=== PATIENT | female | born 1990 | race Two or more races ===

== ENCOUNTER 2019-10-08 16:03 | Emergency (ER) | payer SELFPAY ==
[~2019-10-08] VITALS: Ht 154.9 cm; Wt 70.3 kg
[2019-10-08 16:30] VITALS: BP 128/63
== END 2019-10-08 21:35 | disposition home or self-care (01) ==
LOC: ER 16:07
DX: M79.601 Pain in right arm (principal); M25.511 Pain in right shoulder
CPT/HCPCS: 73030; 73080; 93971

== ENCOUNTER 2020-07-23 01:41 | Emergency (ER) | payer BC, OTHER ==
[~2020-07-23] VITALS: Ht 154.9 cm; Wt 69.4 kg
[2020-07-23 02:16] LABS: Basophils # (auto) 0.1 10 ^3/uL (0-0.2); Basophils % (auto) 0.7 % (0.0-2.0); Eosinophils # (auto) 0.2 10 ^3/uL (0-0.8); Eosinophils % (auto) 1.9 % (0.0-7.0); Hematocrit 36.9 % (36.0-46.0); Hemoglobin 12.7 g/dL (12.2-16.2); Lymphocytes # (auto) 3.4 10 ^3/uL (0.4-5.4); Lymphocytes % (auto) 26.6 % (10.0-50.0); Mean Corpuscular Hemoglobin 30.3 pg (28.0-32.0); Mean Corpuscular Hgb Conc. 34.4 g/dL (32.0-36.0); Monocytes # (auto) 0.7 10 ^3/uL (0-1.3); Monocytes % (auto) 5.4 % (0.0-12.0); Neutrophils # (auto) 8.4 10 ^3/uL (1.6-8.6); Neutrophils % (auto) 65.4 % (37.0-80.0); Nucleated Red Blood Cells % 0.1 %; Platelet Count (auto) 266 10^3/uL (140-450); Red Blood Cells 4.19 10^6/uL (4.0-5.20); Red Cell Distribution Width 12.4 % (11.8-14.3); White Blood Cell 12.9 10^3/uL (4.4-10.8)
[2020-07-23] MEDS ORDERED: SODIUM CHLORIDE 0.9% 2,000 ML IV ONE (04:00)
[2020-07-23 04:03] LABS: Urine Bacteria FEW /hpf (None Seen); Urine Blood 3+ /uL (Negative); Urine Specific Gravity 1.008 (1.001-1.035); Urine WBC 4 /hpf (0 - 5)
[2020-07-23 08:21] VITALS: BP 109/62
== END 2020-07-23 09:08 | disposition home or self-care (01) ==
LOC: ER 01:46
DX: O03.9 Complete or unspecified spontaneous abortion without complication (principal); Z3A.12 12 weeks gestation of pregnancy
CPT/HCPCS: 36415; 76801; 81001; 84702; 85025; 86850; 86900; 86901; 96360; 99285; J7030

== ENCOUNTER 2021-01-05 10:53 | Emergency (ER) | payer BC ==
[~2021-01-05] VITALS: Ht 157.5 cm; Wt 77.1 kg
[2021-01-05 10:57] VITALS: BP 155/85
== END 2021-01-05 11:52 | disposition home or self-care (01) ==
LOC: ER 10:53
DX: O26.893 Other specified pregnancy related conditions, third trimester (principal); G51.0 Bell's palsy; Z90.49 Acquired absence of other specified parts of digestive tract; Z3A.35 35 weeks gestation of pregnancy

== ENCOUNTER 2021-01-12 05:36 | Inpatient (IN) | payer BC ==
[~2021-01-12] VITALS: Ht 154.9 cm; Wt 77.1 kg
[2021-01-12] VITALS (14 sets, daily range): BP systolic 108–156; BP diastolic 58–101
[2021-01-12] MEDS ORDERED: TERBUTALINE SULFATE 1 MG/ML 1ML VIAL SC ONE ×2 (06:25→14:00)
[2021-01-12] MEDS ORDERED: LACTATED RINGER'S 1,000 ML IV ONE (06:30)
[2021-01-12] MEDS: LACTATED RINGER'S 1,000 ML IV SCH ×2 (06:41→20:10)
[2021-01-12] MEDS ORDERED: ceFAZolin 1GM/50ML 50 ML IV ONE (06:45)
[2021-01-12] MEDS ORDERED: LACTATED RINGER'S 1,000 ML IV SCH ×2 (06:45→08:30)
[2021-01-12] MEDS ORDERED: TETRACAINE 1% INJ 2 ML VIAL IJ ONE (06:51)
[2021-01-12] MEDS ORDERED: MORPHINE SULF PF 2 MG/2 ML SYRG ONE (06:53)
[2021-01-12] MEDS ORDERED: fentaNYL CITRATE 100 MCG/2 ML VL ONE (06:53)
[2021-01-12] MEDS ORDERED: MIDAZOLAM HCL 2MG/2ML 2ml VIAL (1mg/ml) ONE (06:53)
[2021-01-12] MEDS ORDERED: ONDANSETRON HCL 4 MG/2 ML VIAL ONE (06:54)
[2021-01-12] MEDS ORDERED: oxyTOCIN 10 UNIT/ML 10ML VIAL ONE (06:54)
[2021-01-12] MEDS ORDERED: BUPIVACAINE 0.5% P/F INJ 10 ML VIAL ONE (06:54)
[2021-01-12] MEDS ORDERED: ePHEDrine SULFATE 50 MG/ML AMP ONE (06:54)
[2021-01-12] MEDS ORDERED: SODIUM CHLORIDE LOCK 10 ML ONE (06:54)
[2021-01-12] MEDS ORDERED: EPINEPHrine HCL 1 MG/1 ML AMP ONE (06:54)
[2021-01-12] MEDS ORDERED: ROCURONIUM 10MG/ML 10ML VIAL IV ONE (07:23)
[2021-01-12] MEDS ORDERED: PROPOFOL 10 MG/ML 20 ML IV ONE (07:23)
[2021-01-12 07:43] LABS: Basophils # (auto) 0.1 10 ^3/uL (0-0.2); Basophils % (auto) 0.5 % (0.0-2.0); Eosinophils # (auto) 0.1 10 ^3/uL (0-0.8); Eosinophils % (auto) 0.4 % (0.0-7.0); Hematocrit 36.5 % (36.0-46.0); Hemoglobin 12.2 g/dL (12.2-16.2); Lymphocytes # (auto) 3.2 10 ^3/uL (0.4-5.4); Lymphocytes % (auto) 25.6 % (10.0-50.0); Mean Corpuscular Hemoglobin 29.7 pg (28.0-32.0); Mean Corpuscular Hgb Conc. 33.4 g/dL (32.0-36.0); Monocytes # (auto) 0.6 10 ^3/uL (0-1.3); Monocytes % (auto) 4.7 % (0.0-12.0); Neutrophils # (auto) 8.6 10 ^3/uL (1.6-8.6); Neutrophils % (auto) 68.8 % (37.0-80.0); Nucleated Red Blood Cells % 0.1 %; Red Cell Distribution Width 13.3 % (11.8-14.3); White Blood Cell 12.5 10^3/uL (4.4-10.8)
[2021-01-12 07:51] LABS: Urine Bacteria FEW /hpf (None Seen); Urine Blood TRACE /uL (Negative); Urine Mucus FEW (None Seen); Urine Specific Gravity 1.013 (1.001-1.035); Urine WBC 1 /hpf (0 - 5)
[2021-01-12 07:59] LABS: INR 0.95 (0.9-1.15); Partial Thromboplastin Time 22.9 sec (23.0-31.2)
[2021-01-12 08:00] LABS: Albumin 2.6 g/dL (3.4-5.0); Calcium 8.9 mg/dL (8.5-10.1); Potassium 3.3 mmol/L (3.5-5.1)
[2021-01-12] MEDS ORDERED: NEOSTIGMINE 1 MG/ML INJ (10mg/10ML VIAL) ONE (08:02)
[2021-01-12] MEDS ORDERED: GLYCOPYRROLATE 0.2 MG/ML 1ML VIAL ONE (08:02)
[2021-01-12] MEDS ORDERED: KETOROLAC TROMETH 30 MG/ML 1ML VIAL ONE (08:05)
[2021-01-12 08:06] LABS: BUN/Creatinine Ratio 17.4; Bilirubin, Total 0.2 mg/dL (0.2-1.0); Total Protein 6.5 g/dL (6.4-8.2)
[2021-01-12 08:11] LABS: Alcohol, Urine < 3.0 mg/dL (0-10); Amphetamine Screen, Urine NEGATIVE (NEGATIVE); Barbiturate Scree,Urine NEGATIVE (NEGATIVE); Benzodiazephine Screen, Urine NEGATIVE (NEGATIVE); Cannabinoid Screen, Urine NEGATIVE (NEGATIVE); Cocaine Screen, Urine NEGATIVE (NEGATIVE); Opiate Scree,Urine NEGATIVE (NEGATIVE); Phencyclidine Screen, Urine NEGATIVE (NEGATIVE)
[2021-01-12] MEDS ORDERED: ONDANSETRON HCL 4 MG/2 ML VIAL IV PRN (08:30)
[2021-01-12] MEDS ORDERED: ceFAZolin 1GM/50ML 50 ML IV SCH (08:30)
[2021-01-12] MEDS ORDERED: GUM (CHEWING) 1 GUM CHEW CHEW ONE (08:30)
[2021-01-12] MEDS ORDERED: HYDROmorphone HCL 2 MG/ML VL IV PRN ×3 (08:30→08:45)
[2021-01-12] MEDS ORDERED: METOCLOPRAMIDE HCL 5MG/ml INJ 2ml VIAL IV PRN (08:45)
[2021-01-12] MEDS ORDERED: KETOROLAC TROMETH 30 MG/ML 1ML VIAL IV ONE (08:45)
[2021-01-12] MEDS ORDERED: MORPHINE SULFATE 4 MG/ML SYR/VIAL IV PRN (08:45)
[2021-01-12] MEDS ORDERED: ACETAMINOPHEN IV 1000 MG/100ML (10MG/ML) IV ONE (10:30)
[2021-01-12] MEDS ORDERED: MORPHINE SULFATE INJECTION 2 MG/ML SYRG IV PRN (10:45)
[2021-01-12] MEDS: KETOROLAC TROMETH 30 MG/ML 1ML VIAL IV PRN ×2 (14:20→20:34)
[2021-01-12] MEDS: ceFAZolin 1GM/50ML 50 ML IV SCH ×2 (16:10→23:49)
[2021-01-13] MEDS: KETOROLAC TROMETH 30 MG/ML 1ML VIAL IV PRN (03:03)
[2021-01-13 03:21] VITALS: BP 113/61
[2021-01-13 06:40] VITALS: BP 122/64
[2021-01-13] MEDS ORDERED: HYDROcodone-ACET 5/325MG TAB PO PRN (07:00)
[2021-01-13] MEDS ORDERED: SIMETHICONE 80 MG CHEWABLE TABLET PO PRN (07:00)
[2021-01-13] MEDS ORDERED: PREN-96 PO (07:01)
[2021-01-13] MEDS ORDERED: FERR27TA2 PO (07:02)
[2021-01-13 07:10] LABS: Basophils # (auto) 0 10 ^3/uL (0-0.2); Basophils % (auto) 0.3 % (0.0-2.0); Eosinophils # (auto) 0.1 10 ^3/uL (0-0.8); Eosinophils % (auto) 0.4 % (0.0-7.0); Hematocrit 28.4 % (36.0-46.0); Hemoglobin 9.7 g/dL (12.2-16.2); Lymphocytes # (auto) 2.7 10 ^3/uL (0.4-5.4); Lymphocytes % (auto) 17.6 % (10.0-50.0); Mean Corpuscular Hemoglobin 30.2 pg (28.0-32.0); Mean Corpuscular Hgb Conc. 34.1 g/dL (32.0-36.0); Mean Corpuscular Volume 88.6 fL (80.0-100.0); Monocytes # (auto) 0.7 10 ^3/uL (0-1.3); Monocytes % (auto) 4.8 % (0.0-12.0); Neutrophils # (auto) 11.8 10 ^3/uL (1.6-8.6); Neutrophils % (auto) 76.9 % (37.0-80.0); Red Blood Cells 3.21 10^6/uL (4.0-5.20); Red Cell Distribution Width 13.6 % (11.8-14.3); White Blood Cell 15.3 10^3/uL (4.4-10.8)
[2021-01-13] MEDS: ceFAZolin 1GM/50ML 50 ML IV SCH (07:28)
[2021-01-13] MEDS: IBUPROFEN 800 MG TAB PO PRN ×2 (07:52→17:18)
[2021-01-13 08:06] LABS: RPR Non Reactive (Non Reactive)
[2021-01-13 10:30] VITALS: BP 108/62
[2021-01-13] MEDS: DOCUSATE SOD 100 MG CAP PO SCH ×2 (12:01→22:00)
[2021-01-13] MEDS: HYDROcodone-ACET 5/325MG TAB PO PRN ×2 (14:53→23:43)
[2021-01-13 15:00] VITALS: BP 131/74
[2021-01-13 19:00] VITALS: BP 136/76
[2021-01-13] MEDS: FERROUS SULFATE 325mg EC TAB PO SCH (21:25)
[2021-01-13 23:00] VITALS: BP 111/63
[2021-01-14] MEDS: IBUPROFEN 800 MG TAB PO PRN ×3 (02:45→20:42)
[2021-01-14 03:01] VITALS: BP 126/71
[2021-01-14 07:07] VITALS: BP 135/84
[2021-01-14] MEDS: FERROUS SULFATE 325mg EC TAB PO SCH ×2 (09:05→18:30)
[2021-01-14] MEDS: DOCUSATE SOD 100 MG CAP PO SCH ×2 (10:02→22:00)
[2021-01-14 11:00] VITALS: BP 133/79
[2021-01-14 15:00] VITALS: BP 131/80
[2021-01-14] MEDS: HYDROcodone-ACET 5/325MG TAB PO PRN (16:11)
[2021-01-14 19:00] VITALS: BP 136/82
[2021-01-14] MEDS ORDERED: CALCIUM CARB 500 MG CHEW TAB PO ONE (20:15)
[2021-01-14 23:00] VITALS: BP 132/80
[2021-01-15] MEDS ORDERED: BISACODYL 10 MG RECT SUPP PR PRN
[2021-01-15] MEDS: HYDROcodone-ACET 5/325MG TAB PO PRN (00:25)
[2021-01-15 03:00] VITALS: BP 133/76
[2021-01-15] MEDS ORDERED: CALCIUM CARB 500 MG CHEW TAB PO PRN (03:30)
[2021-01-15 06:48] VITALS: BP 142/91
[2021-01-15] MEDS: FERROUS SULFATE 325mg EC TAB PO SCH (07:11)
[2021-01-15] MEDS: IBUPROFEN 800 MG TAB PO PRN (07:11)
[2021-01-15] MEDS: DOCUSATE SOD 100 MG CAP PO SCH (09:36)
== END 2021-01-15 09:30 | disposition home or self-care (01) | DRG 787 ==
LOC: LDRP 05:36 → UNDOADMOB 05:36 → INTOOBSV 06:29 → OBSVTOIN 06:29 → LDRP 06:29
PROVIDERS: ADMIT Specialist; ATTEND Specialist
PROC: 10D00Z1 Extraction of Products of Conception, Low, Open Approach (ICD-10-PCS; principal; 2021-01-12 07:34)
DX: O34.211 Maternal care for low transverse scar from previous cesarean delivery (principal); R71.0 Precipitous drop in hematocrit; O13.4 Gestational [pregnancy-induced] hypertension without significant proteinuria, complicating childbirth; Z20.822 Contact with and (suspected) exposure to COVID-19; Z3A.37 37 weeks gestation of pregnancy; Z37.0 Single live birth
CPT/HCPCS: 36415; 59025; 80053; 80307; 81001; 81002; 84550; 85025; 85610; 85730; 86592; 86703; 86762; 86850; 86900; 86901; 87340; 87426; 94760; 96360; 96361; 96365; 96366; 96372; 96374; 96375; G0378; J0131; J0171; J0690; J1885; J2250; J2405; J2590; J2704; J3490

== ENCOUNTER 2024-01-09 15:59 | Emergency (ER) | payer BC, MEDICAID ==
[~2024-01-09] VITALS: Ht 154.9 cm; Wt 67.9 kg
[~2024-01-09 15:59] MED LIST: FERR1TAB31 PO; PREN-96 PO
[2024-01-09 20:54] LABS: Urine Bacteria None Seen /hpf (None Seen)
[2024-01-09 21:21] LABS: Urine Blood Negative /uL (Negative); Urine Clarity Clear (Clear); Urine Color Light-Yellow (Yellow); Urine Mucus FEW (None Seen); Urine Protein, UAD Negative (Negative); Urine Specific Gravity 1.019 (1.001-1.035); Urine Urobilinogen Normal (Negative); Urine WBC <1 /hpf (0 - 5)
[2024-01-10] MEDS ORDERED: NAP500T PO (00:05)
[2024-01-10 00:35] VITALS: BP 126/80; PULSE 65; RESP 16; TEMP 98.2; O2SAT 0
== END 2024-01-10 00:42 | disposition home or self-care (01) ==
LOC: ER 15:59
DX: N83.201 Unspecified ovarian cyst, right side (principal); N88.8 Other specified noninflammatory disorders of cervix uteri; R10.2 Pelvic and perineal pain; Z98.890 Other specified postprocedural states; Z79.899 Other long term (current) drug therapy
CPT/HCPCS: 76830; 76856; 81001; 81025